=== PATIENT | female | born 1960 ===

== ENCOUNTER → 2024-12-18 | Outpatient (CLI) | payer OTHER | LOC: LAB SHORT 18:04 → LAB 18:04 | DX: L08.9 Local infection of the skin and subcutaneous tissue, unspecified (principal); L30.4 Erythema intertrigo; L57.8 Other skin changes due to chronic exposure to nonionizing radiation; Z71.89 Other specified counseling | CPT/HCPCS: 87070; 87077; 87147; 87186; 87205 ==

== ENCOUNTER → 2025-01-01 | Outpatient (CLI) | payer OTHER | LOC: LAB 11:26 → LAB SHORT 11:26 | DX: L30.4 Erythema intertrigo (principal) | CPT/HCPCS: 87102 ==

== ENCOUNTER → 2025-01-19 | Outpatient (CLI) | payer OTHER | END | disposition home or self-care (01) | LOC: LAB 10:34 → LAB SHORT 10:34 | DX: L08.9 Local infection of the skin and subcutaneous tissue, unspecified (principal) | CPT/HCPCS: 87070; 87205 ==

== ENCOUNTER → 2025-02-01 | Outpatient (CLI) | payer OTHER | LOC: LAB 10:50 → LAB SHORT 10:50 | DX: L08.9 Local infection of the skin and subcutaneous tissue, unspecified (principal); S31.109D Unspecified open wound of abdominal wall, unspecified quadrant without penetration into peritoneal cavity, subsequent encounter | CPT/HCPCS: 87070; 87205 ==